=== PATIENT | female | born 1995 | race African-American/Black ===

== ENCOUNTER 2017-08-20 02:21 | Emergency (ER) | payer OTHER ==
[2017-08-20 02:38] VITALS: BP 131/79; BMI 26.6
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
[2017-08-20 03:34] LABS: SERUM PREGNANCY TEST, QUAL NEGATIVE <10 mIU/mL
[2017-08-20] MEDS ORDERED: TORADOL 60 MG VIAL IM ONE (03:51)
[2017-08-20] MEDS ORDERED: TORADOL 60 MG VIAL ONE (04:00)
--- NOTE | 2017-08-20 04:26 | RAD ---
EXAM: Left knee x-ray INDICATION: Pain COMPARISION: No priors TECHNIQUE: AP, lateral, and oblique, three views FINDINGS: No acute fracture or dislocation. There is no evidence of an intraosseous lesion. The joint spaces ar e preserved. No joint effusion is identified. The surrounding soft tissues appear unremarkable. There is no evidence of a radiopaque foreign body. IMPRESSION: Normal left knee x-ray exam Reported By:
--- NOTE | 2017-08-20 04:26 | RAD ---
EXAM: Rib x-rays series INDICATION: Chest pain COMPARISION: No priors available for comparison TECHNIQUE: 7 views were obtained with AP and multiple oblique planes. FINDINGS: There is no evidence of an acute rib fracture. No pneumothorax. The regional skeleton is intact. The visualized lung moses are clear. The cardiac silhouette and mediastinum appear unremarkable. IMPRESSION: Normal rib series Reported By:
== END 2017-08-20 04:30 | disposition home or self-care (01) ==
LOC: ER 02:21
DX: S80.02XA Contusion of left knee, initial encounter (principal); S20.212A Contusion of left front wall of thorax, initial encounter; R07.89 Other chest pain; V89.2XXA Person injured in unspecified motor-vehicle accident, traffic, initial encounter
CPT/HCPCS: 36415; 71111; 73564; 84703; 96372; 99282; 99283; J1885